=== PATIENT | female | born 1975 | race Two or more races ===

== ENCOUNTER 2024-08-25 16:40 | Observation (INO) | payer BC, OTHER, SELFPAY ==
[2024-08-24 13:36] VITALS: BMI 36.2
--- NOTE | 2024-08-24 13:53 | SUR.PREOP ---
Pt is coming tomorrow for registration and surgery, labs to be done in AM per Dr Edwards, interview and instructions where given over the phone.
[2024-08-25] VITALS (9 sets, daily range): BP systolic 115–129; BP diastolic 74–81; PULSE 68–82; RESP 15–20; TEMP 36.2–36.9; O2SAT 94–100; BMI 34.0
--- NOTE | 2024-08-25 06:00 | EKG_ITS ---
[facility] Test Date: 2024-08-25 Pat Name: SCOUT CONTI Department: Room: - Gender: Female Dispute Resolution Analyst: NGOC : 1975 Requested By: Colt Clinton Order Number: [id number] Reading MD: Colt Clinton Measurements Intervals [place] Rate: 77 P: 35 NE: 117 QRS: 41 QRSD: 85 T: 14 QT: 387 QTc: 439 Interpretive Statements SINUS RHYTHM WITH SHORT NE INTERVAL No previous ECG available for comparison /[id number]/[id number]
[2024-08-25 10:54] LABS: Basophils # (Auto) 0.0 Thou/mm3 (0.0-0.2); Basophils % (Auto) 1 % (0-2.5); Eosinophils # (Auto) 0.1 Thou/mm3 (0.0-0.5); Eosinophils % (Auto) 2 % (0-10); Hematocrit 39.8 % (36.0-46.0); Hemoglobin 13.8 g/dL (12.0-16.0); Immature Granulocytes Auto 0.02 Thou/mm3 (0.00-0.00); Lymphocytes # (Auto) 1.8 Thou/mm3 (1.0-4.8); Lymphocytes % (Auto) 26 % (10-50); Mean Corpuscular HGB Conc 34.7 g/dl (31.0-37.0); Mean Corpuscular Hemoglobin 33.3 pg (25.0-35.0); Mean Corpuscular Volume 96 fL (80-100); Monocytes # (Auto) 0.7 Thou/mm3 (0.0-0.8); Monocytes % (Auto) 10 % (0-12); Neutrophils # (Auto) 4.2 Thou/mm3 (1.8-7.7); Neutrophils % (Auto) 62 % (37-80); Nucleated Red Blood Cell # 0.00 Thou/mm3 (0.00-0.00); Nucleated Red Blood Cell % 0 /100 WBC (0); Platelet Count 332 Thou/mm3 (140-440); RDW Standard Deviation 46.5 fL (36.4-46.3); Red Blood Count 4.14 Miln/mm3 (4.00-5.20); White Blood Count 6.8 Thou/mm3 (3.6-11.0)
[2024-08-25 11:08] LABS: INR 1.0 (0.9-1.3); Partial Thromboplastin Time 28.6 Seconds (22.0-36.0); Prothrombin Time 10.9 Seconds (9.0-12.2)
[2024-08-25 11:18] LABS: HCG,Qualitative Serum Negative
[2024-08-25 11:23] LABS: Alanine Aminotransferase 31 U/L (10-49); Albumin, Serum 4.7 gm/dL (3.5-5.0); Albumin/Globulin Ratio 1.6 (1.2-2.2); Alkaline Phosphatase 106 U/L (46-116); Anion Gap 11 (7-16); Aspartate Amino Transferase 26 U/L (0-34); BUN/Creatinine Ratio 10 Ratio (12-20); Bilirubin,Total 0.8 mg/dL (0.3-1.2); Blood Urea Nitrogen 7 mg/dL (9-23); Calcium 9.3 mg/dL (8.3-10.6); Calcium (Corrected) 9.3 mg/dL (8.5-10.1); Carbon Dioxide 23.0 mMol/L (20.0-31.0); Chloride 108 mMol/L (98-107); Creatinine (Component) 0.7 mg/dL (0.6-1.3); Estimated Creatinine Clearance 104.3 mL/min (>60); Globulin 3.0 gm/dL (2.3-3.5); Glucose 96 mg/dL (74-106); Osmolality,Calculated 281 (275-295); Potassium 3.9 mMol/L (3.4-5.1); Sodium 142 mMol/L (136-145); Total Protein 7.7 gm/dL (5.7-8.2); eGFR > 60 See Note
--- NOTE | 2024-08-25 15:18 | XR_ITS ---
Examination: Knee, left , 3 views Technique: Knee AP, lateral, oblique 3 views Date and time of exam: August 25, 2024 1600 hours INDICATIONS: Postop knee replacement today. FINDINGS: Total left knee arthroplasty. Satisfactory alignment. Moderate osteopenia. IMPRESSION: Total left knee arthroplasty with satisfactory alignment.
--- NOTE | 2024-08-25 15:23 | ESOP_ITS ---
Date of Procedure 08/25/24 Pre Op Diagnosis Severe DJD left knee joint Post Op Diagnosis Same Procedure Left total knee replacement Kathie persona implant Femur size 8 narrow Tibial baseplate size D Polyethylene size 12 mm medial stabilized Lateral size 26 mm Findings Patient has significant osteoarthritis changes. The medial compartment was completely eroded of cartilage. 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 There is significant osteophyte formation. Procedure Description The patient was given a [spinal] anesthesia. Left knee block was also given. Once satisfactory anesthesia was achieved a tourniquet was placed on left upper thigh. Intravenous antibiotics was given at the time of anesthesia. The patient was thoroughly prepped and draped. After using Esmarch the tourniquet pressure was raised to 350 mmHg. A skin incision was made 2 inches proximal to the upper pole of patella going as far down as up to the medial aspect of the tibial tuberosity. The skin was raised as a flap on the site. The bleeding vessels were electrocoagulated as and when encountered. The quadriceps tendon, medial border of the patella and the patellar tendon along the medial aspect of the tibial tuberosity was incised and reflected. The patellar tendon was reflected as much as needed to vera the patella. The soft tissue from the upper medial border of the tibia was reflected to correct her genu varum deformity. The knee joint was flexed. The anterior cruciate ligament, medial and lateral meniscus were excised. Next para drill hole was made to the inferior surface of the femur. Following that a sword was placed. A 4?? of abduction was already put into it. Following that a cutting block for the inferior cut of the femur was placed and nicely secured with the pins. The swat was removed. The inferior cut of the femur was made and after that the cutting block was removed. Following that a sizer was placed. A decision was made to use size [8] femur implant. 2 drill holes each in 3?? of external rotation were made. The sizer was removed. Size [8] cutting block was placed. Following that anterior, posterior, anterior chamfer and posterior chamfer cuts were made. The cutting block was removed. The knee joint was extended and a 10 mm trial plastic was removed and the intended level of the tibial cut was marked. The knee joint was flexed. With the help of double-pronged the tibia was displaced anteriorly. An extramedullary jig for the cutting block placement of the tibia was placed. The mechanical axis of the zig was parallel to the mechanical axis of the tibia. Following that the tibial cutting block was placed at the desired level and was secured nicely with the help of pins. Following that the tibial cut was made. In this case was posterior cruciate ligament was saved. The cutting block was removed. The spacer was placed and a decision was made to use size [12] medial stabilizer polyethylene. The sizing of the tibial baseplate was done and the decision was made to use size [D] tibial baseplate. Following that size [8] trial femur implant was placed in lateralized position and size [D] tibial tibial baseplate along with size [12] plastic was placed in knee joint was flexed and extended quite a few times and tibial baseplate was allowed to sit wherever it wanted to. The markings were made for the tibial baseplate. 2 drill holes were made for the inferior surface of the femur trial implant. The trial implant was removed and tibial baseplate was placed again with the help of pins. The collar was placed and superior hole was drilled. Following that a fin cut was made. The patella was reamed with [26] mm diameter reamer. [12] mm thickness was left. A collar was placed and 3 drill holes were made. All the trial implant was placed and patellar tracking was checked and found to be good. Lateral release was done at this point. The wound was irrigated with antibiotic solution every 4-5 minutes. Now the power lavage antibiotic solution was used. The knee joint was flexed. The bone were made dry. The cement was mixed. With the help of cement the tibial baseplate was mounted. The excess cement was removed. The femur implant was placed and trial plastic was placed and knee joint was extended. Patella was also mounted with the help of cementing. Excess cement was removed. Osteophytes from the patella was removed at this time. Once the cement was set the tourniquet pressure was released. The bleeding vessels were electrocoagulated. The trial plastic was removed and 12 mm ultra high molecular weight medial stabilizer polyethylene was placed. Closure The quadriceps was closed in continuous fashion with running strata fix Vicryl. The fat layer was closed with 2 oh STRATAFIX Vicryl in continuous fashion. The subcu tissue was closed with the 3 Monocryl. Prineo tape was applied The wound was cleaned with hydrogen proximal solution and a sterile dressing was applied. Patient tolerated procedure very well. Estimated blood loss [50] mL. Prognosis in this case is good. This was taken to the recovery room in good condition. Anesthesia spinal and other Pathology / specimen None Estimated Blood Loss 25 Surgeon Colt Camilo MD Surgical Staff Operation Date: 08/25/24 12:45 Case Staff Anesthesiologist: Eder Archer RNproposal review analyst: Liana Mistry
--- NOTE | 2024-08-25 15:52 | SUR.PHASEI ---
1552: Pt. AAOx4, vitals stable, breathing unlabored, no complaint of pain or nausea, dressing to left knee CDI, no active bleed noted, pt. able to wiggle bilateral feet, cap refill to bilateral feet less than 3 seconds, bilateral dorsalis pedis pulses strong and regular, report received from MD Archer and Richard JACKSON.
--- NOTE | 2024-08-25 16:01 | ESHP_ITS ---
RE: SCOUT CONTRERAS : 1975 DATE OF ADMISSION: 08/24/2024 The patient came to my office on 08/24/2024 for detailed preop history and physical examination. HISTORY OF PRESENT COMPLAINT: The patient presented to me earlier with history of pain in the left knee joint. The patient graded intensity of pain to be 8-9/10. This is going on for few years, but last 8-10 months is very painful. The patient is unable to walk more than 1 or 2 blocks. The patient is unable to sleep. Basically, quality of life and activities of daily living are affected. X-ray also reveals severe osteoarthritic changes. PAST MEDICAL HISTORY: The patient has history of high blood pressure. No history of diabetes mellitus, asthma, seizure, chest pain, myocardial infarction or bleeding disorder. PAST SURGICAL HISTORY: Status post right total knee replacement done a few months back. DRUG HISTORY: The patient is on: 1. Atenolol 25 mg daily. 2. Otezla. 3. Methimazole 15 mg. ALLERGIES: Nil known. FAMILY HISTORY AND SOCIAL HISTORY: The patient denies smoking or drinking and is not working. PHYSICAL EXAMINATION: GENERAL: Normal built lady. VITAL SIGNS: Pulse 78 per minute and blood pressure 128/76. NECK EXAMINATION: Soft and supple. No mass felt. Trachea is centrally placed. CARDIOVASCULAR SYSTEM: First and second heart sounds were normal. No murmur heard. RESPIRATORY SYSTEM: Bilateral vesicular breath sounds. Chest clear. ABDOMEN: Soft. No mass felt. Bowel sounds present. EXTREMITIES: Left knee examination revealed 1+ swelling and 2+ tenderness. 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 Active range of motion 0-115 degrees of flexion. Crepitus is present. The patient walks with limp. X-ray reveals significant osteoarthritic changes of the left knee joint with quite reduced medial joint space and patellofemoral joint space. Since patient is symptomatic, therefore left total knee replacement was discussed and advised. Risk with anesthesia was explained and that includes, but not limited to reaction to anesthetic agents, cardiac arrest or rarely it might be fatal. Sometime, rare complication happens and that includes possible damage to nerve and/or vessels and if that happens, that has to be taken care of. There is a risk of stress fracture proximal and distal to the implant. No guarantee is given regarding the outcome of the procedure and/or relief of symptoms. Detailed discussion took place. All questions were answered. Accordingly, patient wants to proceed with surgery and surgery is booked for 08/25/2024. Appropriate lab work is done. DT: 15:23:35 TT: 15:59:00 Ref: [id number] - TID: [id number]
[2024-08-25] MEDS: fentaNYL CIT INJ 50 mCg/ML AMP 2ML IVP (16:03)
[2024-08-25] MEDS: ACETAMINOPHEN IVPB 1,000 MG/100 ML VIAL 250 MG IV (16:05)
[2024-08-25] MEDS: SODIUM CHLORIDE 0.9% 1000 ML 1,000 ML 60 ML IV (16:28)
--- NOTE | 2024-08-25 16:40 | SUR.PHASEII ---
1640: Pt. AAOx4, vitals stable, breathing unlabored, no complaint of pain or nausea, dressing to left knee CDI, no active bleed noted, pt. able to wiggle bilateral legs, cap refill to bilateral feet less than 3 seconds, bilateral dorsalis pedis pulses strong and regular, pt. tolerated sips of water well, gave report to Dominique JACKSON prior to transfer to room 377, family has pt. belongings, family made aware of transfer to room 377.
[2024-08-25] MEDS: ceFAZolin/D5W 1 GM IVPB 1 GM/50 ML BAG IV (20:33)
[2024-08-25] MEDS: MORPHINE SULF INJ 10 MG/ML VIAL 4 MG IVP (20:39)
[2024-08-25] MEDS: ONDANSETRON INJ 2 MG/ML INJ 2 ML 4 MG IVP (22:14)
[2024-08-26] VITALS (7 sets, daily range): BP systolic 114–137; BP diastolic 65–85; PULSE 66–96; RESP 17–98; TEMP 36.1–36.9; O2SAT 96–100; BMI 12.0
--- NOTE | 2024-08-26 00:15 | PC.NURSE ---
Pt called c/o nausea, small episode emesis, contacted Dr Edwards give pt ice chips may repeat Zofran in two hours
[2024-08-26] MEDS: MORPHINE SULF INJ 10 MG/ML VIAL 4 MG IVP ×3 (00:33→13:57)
[2024-08-26] MEDS: ceFAZolin/D5W 1 GM IVPB 1 GM/50 ML BAG IV (05:02)
[2024-08-26] MEDS: ONDANSETRON INJ 2 MG/ML INJ 2 ML 4 MG IVP ×2 (05:13→11:11)
--- NOTE | 2024-08-26 09:54 | PC.SS ---
Follow up note: Pt had Left TK Rep yesterday with Dr. Edwards. Pt is POST OB DAY 1. Pt is on IV meds. Pt will return home upon dc.
[2024-08-26] MEDS: SODIUM CHLORIDE 0.9% 1000 ML 1,000 ML 60 ML IV (11:06)
--- NOTE | 2024-08-26 12:24 | PC.SS ---
SS met with patient regarding her d/c plan. Pt is alert/oriented. Pt was admitted for LT TK Rep [id number]. Pt confirmed demographic and contact information is correct on facesheet. Pt resides with . Pt ambulates independently without assistance or DME. Pt is ok with all ADLs. Pt was her walker at bedside. Pt named her , Naima Velazquez medical decision maker if she is unable. Patient?s choice is to return home upon d/c. D/C plan: Return home Next of Kin: Naima Velazquez, , phone# [phone] PCP: Dr. Alvarez from [facility] in [place] Address: Correct on facesheet
[2024-08-26] MEDS: HYDROcodone/APAP 5/325 TABLET 1 TAB PO (19:07)
--- NOTE | 2024-08-26 22:26 | PC.NURSE ---
Addendum entered by Dao Gonzalez RN 08/26/24 22:30: Dr. Edwards made aware. will put in an order for Toradol q6h Original Note: Pt complaining the the norco being prescribed in the hospital is not strong enough because it is every 6 hours. Pt has home NORCO and it is every 4 hours. Pt requests to call the doctor and see if the NORCO can be changed to every 4 hours instead of 6 hours.
[2024-08-26] MEDS: KETOROLAC INJ 30 MG/ML VIAL 15 MG IVP (23:26)
[2024-08-27] VITALS: BP 136/81; PULSE 86; RESP 19; TEMP 36.8; O2SAT 99
[2024-08-27] MEDS: SODIUM CHLORIDE 0.9% 1000 ML 1,000 ML 60 ML IV (03:02)
[2024-08-27 04:00] VITALS: BP 125/82; PULSE 93; RESP 18; TEMP 36.9; O2SAT 98
[2024-08-27 07:24] VITALS: PULSE 90; RESP 18; RESP 96
[2024-08-27] MEDS: KETOROLAC INJ 30 MG/ML VIAL 15 MG IVP ×2 (07:27→13:37)
[2024-08-27 08:00] VITALS: BP 131/85; PULSE 88; RESP 17; TEMP 36.9; O2SAT 98
[2024-08-27] MEDS: HYDROcodone/APAP 5/325 TABLET 1 TAB PO (10:12)
[2024-08-27 10:38] VITALS: BMI 11.0
[2024-08-27 12:00] VITALS: BP 119/82; PULSE 85; RESP 18; TEMP 36.9; O2SAT 97
--- NOTE | 2024-08-31 13:24 | ESPR_ITS ---
Documentation for date of: 08/31/24 POST ANESTHESIA NOTE: Patient had spinal anesthesia and L femoral block for L TKA on 08/25/24. 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 Eder Archer MD Anesthesia Progress Note Progress Note Most recent Vital Signs: Last Vital Signs Temp 98.4 F 08/27/24 12:00 Pulse 85 08/27/24 12:00 Resp 18 08/27/24 12:00 BP 119/82 08/27/24 12:00 Pulse Ox 97 08/27/24 12:00 O2 Del Method Room Air 08/27/24 12:00 FiO2 96 08/26/24 15:02
== END 2024-08-27 14:17 | disposition home or self-care (01) ==
LOC: S3SX 17:05
PROVIDERS: Anesthesiology; Admitting Provider Orthopaedic Surgery; Referring Provider Orthopaedic Surgery; Visit Provider Orthopaedic Surgery
PROC: (CPT 27447; principal; 2024-08-25 13:30)
DX: M17.12 Unilateral primary osteoarthritis, left knee (principal); Z01.810 Encounter for preprocedural cardiovascular examination; M21.162 Varus deformity, not elsewhere classified, left knee; M25.762 Osteophyte, left knee; I10 Essential (primary) hypertension
CPT/HCPCS: 27447; 36415; 73562; 80053; 84703; 85025; 85610; 85730; 86850; 86900; 86901; 86923; 87081; 93005; 96361; 96365; 96375; 96376; 97163; A4217; C1776; G0378; J0131; J0689; J0690; J1100; J1580; J1885; J2250; J2270; J2371; J2405; J2704; J2795; J3010; J3490; J7030; A9270